=== PATIENT | male | born 1990 | race Caucasian/White ===

== ENCOUNTER 2019-05-09 17:07 | Inpatient (IN) | payer OTHER ==
[~2019-05-09] VITALS: Ht 172.7 cm; Wt 74.4 kg
[2019-05-09 18:38] LABS: ABSOLUTE BASOPHILS 0.1 thou/uL (0.0-0.2); ABSOLUTE EOSINOPHILS 0.4 thou/uL (0.0-0.7); ABSOLUTE LYMPHOCYTES 2.8 thou/uL (0.8-5.3); ABSOLUTE MONOCYTES 1.1 thou/uL (0.0-1.2); ABSOLUTE NEUTROPHILS 9.5 thou/uL (1.6-8.1); BASOPHILS 0.8 %; EOSINOPHILS 2.7 %; HEMATOCRIT 36.5 % (42.0-52.0); HEMOGLOBIN 12.2 gm/dL (14.0-18.0); LYMPHOCYTES 20.2 %; MCH 27.9 pg (26.0-34.0); MCHC 33.5 g/dL (28.0-37.0); MONOCYTES 7.6 %; MPV 6.5 fl. (7.2-11.1); NUCLEATED RBCS 0 /100WBC; PLATELET COUNT* 506 thou/uL (150-400); POLYS 68.7 %; RBC 4.39 mil/uL (4.50-6.00); RDW-CV 13.4 % (10.5-14.5); WBC 13.8 thou/uL (4.0-11.0)
[2019-05-09 18:44] LABS: CALCIUM 8.9 mg/dL (8.5-10.1); CREATININE 0.7 mg/dL (0.6-1.3); POTASSIUM 3.5 mmol/L (3.5-5.1)
[2019-05-09 18:48] LABS: ALBUMIN 3.2 g/dL (3.4-5.0); TOTAL BILIRUBIN 0.3 mg/dL (<0.1-1.0); TOTAL PROTEIN 7.9 g/dL (6.4-8.2)
[2019-05-09] MEDS ORDERED: KEFLEX500 M1 PO (19:59)
[2019-05-09] MEDS ORDERED: IBUPROFEN 800800 M1 PO (19:59)
[2019-05-09] MEDS ORDERED: BACTRIM DS TAB1 EAC1 PO (19:59)
[2019-05-09 21:21] VITALS: BP 117/80
[2019-05-09 21:30] VITALS: BP 120/74
[2019-05-10 04:28] VITALS: BP 123/83
--- NOTE | 2019-05-10 05:07 | NUR ---
RECIEVED REPORT FROM [facility] TECHNICIANCHEIKH WINSLOW AT 2114. PT ARRIVED TO UNIT AT 2129 VIA ER CART. PT VOICED NO CONCERNS. PT ORIENTED TO ROOM AND CALL LIGHT. NURSING ASSESSMENT COMPLETED. NEGATIVE SEPSIS SCREENING. HOURLY ROUNDING COMPLETED. CALL LIGHT WITHIN REACH.
[2019-05-10 07:05] LABS: HEMATOCRIT 31.9 % (42.0-52.0); HEMOGLOBIN 10.9 gm/dL (14.0-18.0); MCH 28.7 pg (26.0-34.0); MCHC 34.2 g/dL (28.0-37.0); MCV 83.9 fL (80.0-100.0); MPV 6.3 fl. (7.2-11.1); RBC 3.8 mil/uL (4.50-6.00); RDW-CV 13.5 % (10.5-14.5); WBC 9.5 thou/uL (4.0-11.0)
[2019-05-10 07:18] LABS: ALBUMIN 2.4 g/dL (3.4-5.0); CALCIUM 7.1 mg/dL (8.5-10.1); CREATININE 0.5 mg/dL (0.6-1.3); POTASSIUM 3.3 mmol/L (3.5-5.1); TOTAL BILIRUBIN 0.3 mg/dL (<0.1-1.0); TOTAL PROTEIN 6.2 g/dL (6.4-8.2)
[2019-05-10 08:00] VITALS: BP 139/82
--- NOTE | 2019-05-10 11:40 | NUR ---
ASSUMED PT CARE AT 0700, PT A&O X4, ASHLYN STABLE, TACHYCARDIC, AFEBRILE, UP AD CONNER, MED SURG STATUS. WOUND TO RIGHT SIDE OF CHEEK RED, SWOLLEN, WARM TO TOUCH, FULL ASSESSMENT CHARTED. PT WAS UP GOING TO BATHROOM WHEN THERE WERE UNMARKED PILLS FOUND IN BED. PT AND SO STATED THEY HAD FALLEN OUT OF POCKET WHEN PT TOOK OFF PANTS AND THEY WERE "PROBIOTICS". PILLS WERE CONFISCATED AND SO TOLD TO TAKE ALL MEDS HOME, SO AND PT COOPERATIVE AND IN AGGREEMENT. PT TRANSFERRED TO MED SURG AT APPROX 1130, REPORT GIVEN TO CHEIKH ABDI. HOURLY ROUNDING COMPLETED.
[2019-05-10 11:56] LABS: AMP/METHAMP Negative (Negative); BARBITURATES Negative (Negative); BENZODIAZEPINES Negative (Negative); COCAINE Negative (Negative); METHADONE Negative (Negative); OPIATES POSITIVE (Negative); PCP Negative (Negative); THC Negative (Negative)
--- NOTE | 2019-05-10 12:42 | NUR ---
PATIENT TRANSFERRED UP TO ROOM 307 AT 1130. ALERT AND ORIENTED X 4. PATIENT REQUESTING SNACKS, FOOD GIVEN. PATIENTS SO NOTED TO BE IN BATHROOM WITH SUSPICIOUS ITEMS ON BATHROOM COUNTER AND WHEN THIS NURSE VISUALIZED ITEMS PATIENTS SO SHUT BATHROOM DOOR. SECURITY WAS NOTIFIED AND WOMEN ESCORTED OFF PROPERTY. PATIENT ANXIOUS ABOUT SITUATION BUT DID SETTLE DOWN AND HAS BEEN COOPERATIVE. PATIENT STATED TO ANOTHER NURSE THAT HE WAS "PROBABLY GOING TO LEAVE AFTER 1400 ANTIBIOTIC." AGREE WITH AM ASSESSMENT.
[2019-05-10 16:00] VITALS: BP 117/71
--- NOTE | 2019-05-10 16:21 | NUR ---
PATIENT CALLING OUT THIS AFTERNOON STATING HE NEEDED TO SEE A DOCTOR FOR HIS FACIAL WOUND. PATIENT OBSERVED TO HAVE SCRATCHED FACE AND NOW SMALL OPEN AREA NOTED. DR. FAY WAS NOTIFIED AND NO NEW ORDERS RECEIVED. PATIENT MAY HAVE WARM PACKS TO FACE. ID CONSULTED. IVF AND SCHED ABX INFUSED ORDERED. PATIENT GIVEN SCHED TYLENOL AND TORADOL THIS AFTERNOON, NOTED TO BE SLEEPING AFTER GIVEN.
[2019-05-10 19:45] VITALS: BP 102/56
--- NOTE | 2019-05-11 05:16 | NUR ---
PT SLEPT WELL OFF AND ON OVERNIGHT, UP AD CONNER IN ROOM. HAS DENIED NEED FOR PRN PAIN MEDICATION. R CHEEK WOUND TAMIA-PT DID NOT WANT DRSG PLACED OVERNIGHT. RFA IVF INFUSING PER PUMP, ABX GIVEN ORDERED. AM LABS TO BE DRAWN. PT DESIRES DISCHARGE WITH ABX SCRIPTS THIS MORNING, STATES HE WANTS "TO DO THIS THE RIGHT WAY, BUT I NEED TO GO BE WITH MY GIRLFRIEND BECAUSE SHE DOESNT HAVE ANYWHERE TO GO." EDUCATION GIVEN ON IMPORTANCE OF ABX FOR HEALING OF INFECTION. PT HAS NOT HAD VISITORS THIS SHIFT, HAS BEEN CALM AND COOPERATIVE. TOLERATING DIET WITHOUT DIFFICULTY. ABLE TO USE CALL LITE AND MAKE NEEDS KNOWN.
[2019-05-11 08:05] VITALS: BP 118/74
[2019-05-11] MEDS ORDERED: CLINDAMYCIN PO (11:36)
[2019-05-11] MEDS ORDERED: ACETAMINOPHEN PO (11:38)
[2019-05-11 11:39] VITALS: BP 118/74
--- NOTE | 2019-05-11 12:16 | NUR ---
PATIENT STATING THIS AM THAT HE WAS READY TO LEAVE. DR. AFY NOTIFIED AND CAME TO SEE PATIENT. AMANUEL WEBB TO STAY AND SEE DR. OREILLY. DR. OREILLY OK TO DC PATIENT. WOUND PHOTO OBTAINED. IV DC'D DUE TO LEAKING, PATIENT REFUSED ANOTHER IV THIS AM. PATIENT VERBALIZES UNDERSTANDING OF DISCHARGE PAPERWORK. [facility] BUT NO ANSWER. PATIENT TO CALL BACK TO HOSPITAL IF UNABLE TO AFFORD. HOMELESS RETIREMENT INFO GIVEN TO PATIENT. PATIENT TAKEN OUT VIA WHEELCHAIR WITH ALL BELONGINGS AND STAFF.
--- NOTE | 2019-05-12 12:20 | CON ---
[address] [address] CONSULTATION Name: SOLE DANIEL Room: [address] IN M.R.#: [id number] Admission: 05/09/19 Attend Phys: Leslye Cyr Discharge: 05/11/19 Date of : 86 Report #: [id number] THIS REPORT FOR: //name// cc: RANI Stack family physician/PCP RANI - Seda family physician/PCP ~ THIS REPORT FOR: //name// CC: RANI physician/PCP Светлана Montes D [facility] DATE OF SERVICE: 05/11/2019 INFECTIOUS DISEASE CONSULTATION ATTENDING PHYSICIAN: Dr. Herrera. REASON FOR EVALUATION: Right-sided facial skin and soft tissue infection with cellulitis and subcutaneous abscess. HISTORY OF PRESENT ILLNESS: Chart reviewed, patient examined. This is a 28-year-old man without significant medical history, though had developed a patchy lesion on the right side of his face that progressed fairly quickly. He did try to deroof it, had some drainage, it eventually became quite painful. It is not clear whether he had fevers or any chills. No pulmonary or gastrointestinal related complaints. He was evaluated and felt to have a facial cellulitis. Blood cultures are sterile thus far. He was started empirically on vancomycin and clindamycin. At this point, he feels somewhat better, it has not drained and he is stating he has to leave. ALLERGIES: None known. MEDICATIONS: Include vancomycin, ketorolac, oxycodone, clindamycin, nicotine, ondansetron. PAST MEDICAL HISTORY: He does have history of depression and anxiety. SOCIAL HISTORY: Smokes cigarettes. No ethanol. Has used illicit drugs, fairly recently. He is reportedly homeless. FAMILY HISTORY: Noncontributory. REVIEW OF SYSTEMS: As above. PHYSICAL EXAMINATION: GENERAL: He appears somewhat undernourished. He is alert, cooperative, [place] [address] CONSULTATION Name: SOLE DANIEL Room: [address]#: [id number] Admission: 05/09/19 Attend Phys: Leslye Cyr Discharge: 05/11/19 Date of : 86 Report #: [id number] HEENT: Multiple piercings. Normocephalic. Extraocular muscles intact. Face has an ulcerative lesion over the right maxillary site. There are several centimeters of erythema at the margins that are slightly tender. There is no expressible material. NECK: Supple. LUNGS: Otherwise, clear breath sounds. HEART: Regular. I do not appreciate any murmur. ABDOMEN: Soft. Nontender. GENITOURINARY: Deferred. RECTAL: Deferred. LABORATORY DATA: As described above. Initial CBC: White count of 13.8, H and H 12.2 and 36.5, platelets of 506. Electrolytes: Sodium 138, potassium 3.5, chloride 100, bicarbonate is 31, anion gap of 7, BUN and creatinine 14 and 0.7, glucose of 89. LFTs are unremarkable. Albumin of 3.2, total protein of 7.9, estimated GFR of 132. Lactic acid of initially 1.5. ASSESSMENT AND PLAN: Right facial cellulitis and skin and soft tissue infection with abscess. Continue the clindamycin. Wound care as prescribed. Apply warm moist heat to the site. He was instructed to return if worsens. <ELECTRONICALLY SIGNED> By: Bernard May MD 05/12/19 1220 1134 [id number] May MD /nt
== END 2019-05-11 12:00 | disposition home or self-care (01) | DRG 602 ==
LOC: M.ERS 17:07 → M.TBA-ER 20:13 → M.2W 22:01 → M.3W 05-10 11:40
PROVIDERS: Internal Medicine; Nurse Practitioner Family; ADMIT Internal Medicine
DX: L03.211 Cellulitis of face (principal); E43 Unspecified severe protein-calorie malnutrition; L02.01 Cutaneous abscess of face; R65.10 Systemic inflammatory response syndrome (SIRS) of non-infectious origin without acute organ dysfunction; F32.9 Major depressive disorder, single episode, unspecified; F41.9 Anxiety disorder, unspecified; F17.210 Nicotine dependence, cigarettes, uncomplicated; D64.9 Anemia, unspecified; Z79.899 Other long term (current) drug therapy; Z59.0 Homelessness; Z68.24 Body mass index [BMI] 24.0-24.9, adult; Z28.21 Immunization not carried out because of patient refusal